=== PATIENT | female | born 1985 | race African-American/Black ===

== ENCOUNTER 2020-06-27 15:46 | Outpatient (REF) | payer OTHER, SELFPAY | END 2020-06-27 15:47 | disposition home or self-care (01) | LOC: HO.LAB 15:46 | PROVIDERS: Visit Provider Internal Medicine | DX: Z20.822 Contact with and (suspected) exposure to COVID-19 (principal) | CPT/HCPCS: C9803; U0003; U0005 ==

== ENCOUNTER 2020-10-06 08:10 | Outpatient (REF) | payer OTHER, SELFPAY ==
[2020-10-06 08:58] LABS: MANUAL DIFF FLAG SCAN; Monocytes Percent Auto 5.1 % (2-11); PLT CLUMP 1; Red Cell Distribution Width 12.8 % (11.0-16.0); SCAN SMEAR FLAG 1
[2020-10-06 09:00] LABS: Basophils Percent Auto 0.5 % (0-2); Eosinophils Absolute Auto 0.1 X10*3/uL (0.0-0.4); Eosinophils Percent Auto 1.6 % (0-4); Hematocrit 42.8 % (37-47); Imm Gran Abs Auto 0.03 X10*3/uL (0.00-0.03); Imm Gran Pct Auto 0.4 % (0.0-0.4); Lymphocytes Percent Auto 26.6 % (20-40); Mean Corpuscular HGB Conc 32.7 g/dl (31.0-35.0); Mean Corpuscular Hemoglobin 29.4 pg (27.0-33.0); Mean Corpuscular Volume 89.9 fL (80-98); Monocytes Absolute Auto 0.4 X10*3/uL (0.1-1.2); Neutrophils Percent Auto 65.8 % (45-73); Red Blood Count 4.76 X10*6/uL (4.20-5.50); White Blood Count 7.6 X10*3/uL (4.8-10.8)
[2020-10-06 09:29] LABS: Platelet Count 234 X10*3/uL (160-400); SLIDE REVIEW VERIFIED
== END 2020-10-06 08:11 | disposition home or self-care (01) ==
LOC: HO.LAB 08:10
PROVIDERS: PCP Internal Medicine; Visit Provider Internal Medicine
DX: E03.9 Hypothyroidism, unspecified (principal); J45.909 Unspecified asthma, uncomplicated
CPT/HCPCS: 36415; 80053; 82465; 84439; 84443; 85025

== ENCOUNTER 2020-10-08 14:17 | Outpatient (REF) | payer OTHER, SELFPAY ==
[2020-10-08 15:12] LABS: MANUAL DIFF FLAG NO
[2020-10-08 15:37] LABS: Basophils Absolute Auto 0.1 X10*3/uL (0.0-0.2); Basophils Percent Auto 0.5 % (0-2); Eosinophils Absolute Auto 0.1 X10*3/uL (0.0-0.4); Eosinophils Percent Auto 1.4 % (0-4); Hematocrit 42.4 % (37-47); Imm Gran Abs Auto 0.04 X10*3/uL (0.00-0.03); Imm Gran Pct Auto 0.4 % (0.0-0.4); Lymphocytes Absolute Auto 3.1 X10*3/uL (1.2-4.9); Mean Corpuscular Hemoglobin 29.4 pg (27.0-33.0); Mean Corpuscular Volume 88.9 fL (80-98); Mean Platelet Volume 10.4 fL (9.4-12.3); Monocytes Absolute Auto 0.8 X10*3/uL (0.1-1.2); Monocytes Percent Auto 7.9 % (2-11); Neutrophils Absolute Auto 6.1 X10*3/uL (2.0-8.3); Neutrophils Percent Auto 59.8 % (45-73); Platelet Count 296 X10*3/uL (160-400); Red Blood Count 4.77 X10*6/uL (4.20-5.50); Red Cell Distribution Width 12.5 % (11.0-16.0); White Blood Count 10.2 X10*3/uL (4.8-10.8)
[2020-10-08 15:45] LABS: Alanine Aminotransferase 25 U/L (0-31); Albumin Level 4.9 g/dL (3.5-5.0); Alkaline Phosphatase 90 U/L (39-117); Anion Gap 16 (12-20); Aspartate Amino Transferase 17 U/L (5-31); Bilirubin Total 0.3 mg/dL (0.0-1.0); Blood Urea Nitrogen 13 mg/dL (9-16); Calcium 9.7 mg/dL (8.4-10.2); Carbon Dioxide 25 mmol/L (22-29); Chloride 101 mmol/L (96-108); Cholesterol 199 mg/dL; Estimated Glomerular Filt Rate 58; Glucose Random 91 mg/dL (60-115); Potassium 4.6 mmol/L (3.3-5.1); Sodium 137 mmol/L (135-145); Total Protein 7.9 g/dL (6.5-8.0)
[2020-10-08 16:09] LABS: Free T4 (Free Thyroxine) 0.99 ng/dL (0.71-1.85)
== END 2020-10-08 14:18 | disposition home or self-care (01) ==
LOC: HO.LAB 14:17
PROVIDERS: PCP Internal Medicine; Visit Provider Internal Medicine
DX: E03.9 Hypothyroidism, unspecified (principal); F90.9 Attention-deficit hyperactivity disorder, unspecified type; J45.909 Unspecified asthma, uncomplicated
CPT/HCPCS: 36415; 80053; 82465; 84439; 84443; 85025

== ENCOUNTER 2021-01-06 15:00 | Outpatient (RCR) | payer OTHER, SELFPAY ==
--- NOTE | 2020-10-20 18:14 | MHC.PT.EP ---
[facility] [place] Office [place] Office [place] Office [address] Neida Casarez [address] [place] [address] [phone] F: [phone] F: [phone] F: [phone] F: [phone] Physical Therapy Plan of Care Date of Evaluation: Date of Surgery: N/A Diagnosis: sacrococcygeal disorders (R SI dysfunction) Assessment: pt presents to physical therapy with pain, decreased range of motion, decreased strength, impaired functional mobility, impaired postural awareness, and gait deviations. pt is a good candidate for skilled PT due to age, potential remediation of impairments, typical disease/condition progression and prognosis, comorbidities, and motivation. pt would benefit from tailored strengthening and stretching exercise program, functional training, gait training, postural re-training, neuromuscular re-education, modalities as needed for pain, equipment safety demonstration. Frequency and Duration: The patient will be seen 2x/wk for 4 wks Short Term Goals: pt will be I w/ HEP to promote self-management of condition. pt will improve R hip abduction and extension strength by 1 MMT grade to promote improved pelvic stability w/ ambulation. Mcc Goals: pt will report <3/10 back pain w/ >30 min of cardio exercise to promote improved cardiovascular and musculoskeletal health. pt will tolerate sitting for >1 hr to promote pain-free return to work. Treatment Plan: Modalities to reduce pain, spasms and effusion. Manual therapy to restore motion and function. Therapeutic exercise to improve strength and flexibility. Neuromuscular re-education for posture and balance. Therapeutic activities to return to functional activities of daily living. Electronically signed by: Morenita Marshall PT, DPT Please sign and return to therapist. Thank you for your referral.
--- NOTE | 2021-01-19 14:21 | MHC.PT.DC ---
[facility] [place] Office [place] Office [place] Office [address] Neida Casarez [address] [phone] F: [phone] F: [phone] F: [phone] F: [phone] Physical Therapy Discharge Report Diagnosis: sacrococcygeal disorders (R SI dysfunction) Date of Surgery: N/A Date of Evaluation: 10/20/20 Date of Discharge: 01/19/21 Treatments to Date: 13 Cancellations to Date: 5 No Shows to Date: 0 Discharge Status: Improved Function Independent with HEP Discharge Summary: The patient has had fair attendance compliance throughout her physical therapy plan of care. Initially, she was progressing well with subjective reports of less intense and less frequent pain. She had a setback which she was not able to connect to any change in routine or trauma. She struggled to manage her symptoms. The patient was educated regarding bilateral lower extremity stretching and strengthening, posture education, use of lumbar roll when sitting, and activity modification to reduce exacerbation of symptoms. When she returned she reported she was relatively pain-free and would like to review her exercises and squat mechanics for safe return to her gym routine. She is independent with her home exercise program. She is discharged from this physical therapy plan of care. Electronically signed by: Morenita Marshall PT, DPT Please sign and return to therapist. Thank you for your referral.
== END 2021-01-19 14:22 | disposition home or self-care (01) ==
LOC: HO.PT 15:00
PROVIDERS: PCP Internal Medicine; Visit Provider Internal Medicine
DX: M53.3 Sacrococcygeal disorders, not elsewhere classified (principal)
CPT/HCPCS: 97033; 97110; 97112; 97161

== ENCOUNTER 2021-09-07 16:38 | Emergency (ER) | payer BC, SELFPAY ==
--- NOTE | 2021-09-07 | ECG_ITS ---
Test Reason : CHEST PAIN Blood Pressure : / mmHG Vent. Rate : 100 BPM Atrial Rate : 100 BPM P-R Int : 154 ms QRS Dur : 070 ms QT Int : 324 ms P-R-T Axes : 039 013 005 degrees QTc Int : 417 ms Normal sinus rhythm Nonspecific T wave abnormality Abnormal ECG When compared with ECG of 20-JUL-2010 14:56, Vent. rate has increased BY [address] no longer elevated in Anterior leads Referred By: Generic ED Physician Electronically Signed By:Emanuel Knott
--- NOTE | ~2021-09-07 | XR_ITS ---
EXAMINATION: XR CHEST CLINICAL INFORMATION: Chest pain COMPARISON: None TECHNIQUE: Frontal view of the chest was obtained. FINDINGS: No significant abnormality is noted involving the heart, lungs, mediastinum, bony thorax or soft tissues. XR/XR chest 1V IMPRESSION: No acute pulmonary disease.
[2021-09-07 17:12] VITALS: BP 142/73; PULSE 100; RESP 18; TEMP 36.8; O2SAT 100; BMI 28.4
[2021-09-07 17:49] LABS: MANUAL DIFF FLAG NO
[2021-09-07 17:53] LABS: Eosinophils Absolute Auto 0.1 X10*3/uL (0.0-0.4); Eosinophils Percent Auto 0.8 % (0-4); Hematocrit 36.8 % (37.0-47.0); Hemoglobin 12.5 g/dl (12.0-16.0); Imm Gran Abs Auto 0.04 X10*3/uL (0.00-0.03); Imm Gran Pct Auto 0.4 % (0.0-0.4); Lymphocytes Absolute Auto 2.5 X10*3/uL (1.2-4.9); Lymphocytes Percent Auto 25.1 % (20-40); Mean Corpuscular Hemoglobin 29.7 pg (27.0-33.0); Mean Corpuscular Volume 87.4 fL (80.0-98.0); Mean Platelet Volume 8.8 fL (9.4-12.3); Monocytes Absolute Auto 0.4 X10*3/uL (0.1-1.2); Monocytes Percent Auto 4.5 % (2-11); Neutrophils Absolute Auto 6.7 x10*3/uL (2.0-8.3); Neutrophils Percent Auto 69.2 % (45-73); Platelet Count 316 X10*3/uL (160-400); Red Blood Count 4.21 X10*6/uL (4.20-5.50); Red Cell Distribution Width 11.8 % (11.0-16.0); White Blood Count 9.8 X10*3/uL (4.8-10.8)
[2021-09-07 18:01] LABS: COVID-19 Test Negative (Negative); IDNOW Serial# 55D5AD1C
[2021-09-07 18:06] LABS: Anion Gap 12 (12-20); Blood Urea Nitrogen 12 mg/dL (9-16); Calcium 8.9 mg/dL (8.4-10.2); Carbon Dioxide 26 mmol/L (22-29); Chloride 104 mmol/L (96-108); Creatinine Clr Calc Pharmacy 78.9; Estimated Glomerular Filt Rate 59; Glucose Random 97 mg/dL (60-115); Potassium 3.8 mmol/L (3.3-5.1); Sodium 138 mmol/L (135-145)
[2021-09-07 18:14] LABS: Troponin-I High Sensitivity < 3.5 ng/L (<3.5-17.0)
[2021-09-07 20:00] VITALS: BP 137/75; PULSE 85; RESP 16; TEMP 36.7; O2SAT 100
--- NOTE | 2021-09-07 20:07 | ED_ITS ---
HPI - URI/Sore Throat General Chief Complaint: Upper Respiratory Symptoms Stated Complaint: SOB/chest tightness/possible COVID Time Seen by Provider: 09/07/21 20:07 Source: patient Mode of arrival: ambulatory Limitations: no limitations History of Present Illness HPI Narrative: Patients have anxiety bipolar disorder ADHD and asthma complaining of dry cough for last 2 weeks slight shortness of breath today got worse when she could not find her remote in the room use her inhaler when she came here she was saturat ing 100% and she got better no fever no chills Related Data Home Medications Medication Instructions Recorded Confirmed albuterol sulfate 90 mcg/actuation 2 puff PO BID PRN 12/11/20 05/11/21 aerosol inhaler betamethasone valerate 0.1 % topical 12/11/20 05/11/21 topical ointment dextroamphetamine-amphetamine 10 2.5 tab PO DAILY 12/11/20 05/11/21 mg tablet epinephrine 0.3 mg/0.3 mL 0.3 ml IM ONCE PRN 12/11/20 05/11/21 injection, auto-injector gabapentin 600 mg tablet 600 mg PO BEDTIME 12/11/20 05/11/21 levothyroxine 88 mcg tablet 88 mcg PO DAILY 12/11/20 05/11/21 (Euthyrox) bupropion HCl 150 mg 24 hr tablet, 300 mg PO QAM 05/11/21 05/11/21 extended release bupropion HCl 75 mg tablet 75 mg PO QAM 05/11/21 05/11/21 drospirenone 3 mg-ethinyl 1 tab PO DAILY 05/11/21 05/11/21 estradiol 0.02 mg tablet fluticasone 100 mcg-salmeterol 50 1 inh inhalation BID 05/11/21 05/11/21 mcg/dose blistr powdr for inhalation (Advair Diskus) hydroxyzine HCl 10 mg tablet 10 mg PO BID 05/11/21 05/11/21 lamotrigine 100 mg tablet mg PO 05/11/21 05/11/21 lamotrigine 250 mg tablet,extended 250 mg PO DAILY 05/11/21 05/11/21 release 24 hr Allergies Allergy/AdvReac Type Severity Reaction Status Date / Time No Known Allergies Allergy Verified 09/07/21 17:12 Review of Systems Review of Systems: Yes all other systems are reviewed and are negative [facility] Past Medical History Surgical History History of wisdom tooth extraction Family History Family History Mother Depressed Bipolar 1 disorder Anxiety ADHD Mental health disorder Father No problems noted. Other Substance use disorder Social History Social History Housing: Apartment Alcohol intake: current Alcohol intake frequency: holidays/special occasions only Patient Tobacco Use Status: Never used Tobacco e-Cigarette/Vaping Use: Never Used Second Hand Smoke Exposure: No service: No Current occupational status: employed Current occupation: [employer] Physical Exam Vital Signs: Vital Signs: Last Vital Signs Temp 98.0 F 09/07/21 20:00 Pulse 85 09/07/21 20:00 Resp 16 09/07/21 20:00 BP 137/75 09/07/21 20:00 Pulse Ox 100 09/07/21 20:00 O2 Del Method 09/07/21 20:00 BMI result Body Mass Index 28.4 Appearance: Alert. Oriented X3. No acute distress. Anxious Eyes: No pallor or icterus ENT: Pharynx normal. Oral Mucosa moist Neck: Normal inspection. Neck supple. CVS: Normal heart rate and rhythm. Pulses normal. Respiratory: No respiratory distress. Equal air entry bilateral, no wheezing/rales/rhonchi Abdomen: Soft and nontender. Bowel sounds are present, no mass palpable, Skin: Skin warm and dry. Normal skin color. Normal skin turgor. Extremities: No lower extremity edema. No calf tenderness Neuro: Oriented X 3. No motor deficit. MDM - URI/Sore Throat MDM Narrative Medical decision making narrative: Patient has stable labs COVID negative x-ray negative lungs are clear to auscultation saturating 100% room air symptoms seems to be mild anxiety , patient has medications at home will discharge patient home Lab Data Attestation: I reviewed the patient's lab results. Result diagrams: 09/07/21 17:44 09/07/21 17:44 Labs: Lab Results 09/07/21 09/07/21 09/07/21 Range/Units 17:30 17:44 17:44 WBC 9.8 (4.8-10.8) X10*3/uL RBC 4.21 (4.20-5.50) X10*6/uL Hgb 12.5 (12.0-16.0) g/dl Hct 36.8 L (37.0-47.0) % MCV 87.4 (80.0-98.0) fL MCH 29.7 (27.0-33.0) pg MCHC 34.0 (31.0-35.0) g/dl RDW 11.8 (11.0-16.0) % Plt Count 316 (160-400) X10*3/uL MPV 8.8 L (9.4-12.3) fL Immature Gran % (Auto) 0.4 (0.0-0.4) % Neut % (Auto) 69.2 (45-73) % Lymph % (Auto) 25.1 (20-40) % [place] % (Auto) 4.5 (2-11) % Eos % (Auto) 0.8 (0-4) % Baso % (Auto) 0.0 (0-2) % Lymph # (Auto) 2.5 (1.2-4.9) X10*3/uL [place] # (Auto) 0.4 (0.1-1.2) X10*3/uL Eos # (Auto) 0.1 (0.0-0.4) X10*3/uL Baso # (Auto) 0.0 (0.0-0.2) X10*3/uL Abs Immat Gran (auto) 0.04 H (0.00-0.03) X10*3/uL Absolute Neuts (auto) 6.7 (2.0-8.3) x10*3/uL Absolute Nucleated RBC 0.000 (0.0-0.012) X10*3/uL Nucleated RBC % (auto) 0.0 (0.0-0.2) /100WBC Sodium 138 (135-145) mmol/L Potassium 3.8 (3.3-5.1) mmol/L Chloride 104 (96-108) mmol/L Carbon Dioxide 26 (22-29) mmol/L Anion Gap 12 (12-20) BUN 12 (9-16) mg/dL Creatinine 1.06 (0.5-1.4) mg/dL Estim Creat Clear Calc 78.9 Estimated GFR 59 Random Glucose 97 (60-115) mg/dL Calcium 8.9 D (8.4-10.2) mg/dL Troponin I High Sens (<3.5-17.0) ng/L COVID-19 ([facility]) Negative (Negative) COVID-19 Clin Com See Note 09/07/21 Range/Units 17:44 WBC (4.8-10.8) X10*3/uL RBC (4.20-5.50) X10*6/uL Hgb (12.0-16.0) g/dl Hct (37.0-47.0) % MCV (80.0-98.0) fL MCH (27.0-33.0) pg MCHC (31.0-35.0) g/dl RDW (11.0-16.0) % Plt Count (160-400) X10*3/uL MPV (9.4-12.3) fL Immature Gran % (Auto) (0.0-0.4) % Neut % (Auto) (45-73) % Lymph % (Auto) (20-40) % [place] % (Auto) (2-11) % Eos % (Auto) (0-4) % Baso % (Auto) (0-2) % Lymph # (Auto) (1.2-4.9) X10*3/uL [place] # (Auto) (0.1-1.2) X10*3/uL Eos # (Auto) (0.0-0.4) X10*3/uL Baso # (Auto) (0.0-0.2) X10*3/uL Abs Immat Gran (auto) (0.00-0.03) X10*3/uL Absolute Neuts (auto) (2.0-8.3) x10*3/uL Absolute Nucleated RBC (0.0-0.012) X10*3/uL Nucleated RBC % (auto) (0.0-0.2) /100WBC Sodium (135-145) mmol/L Potassium (3.3-5.1) mmol/L Chloride (96-108) mmol/L Carbon Dioxide (22-29) mmol/L Anion Gap (12-20) BUN (9-16) mg/dL Creatinine (0.5-1.4) mg/dL Estim Creat Clear Calc Estimated GFR Random Glucose (60-115) mg/dL Calcium (8.4-10.2) mg/dL Troponin I High Sens < 3.5 (<3.5-17.0) ng/L COVID-19 ([facility]) (Negative) COVID-19 Clin Com Discharge Plan Discharge Clinical Impression: Asthma Patient Disposition: Home, Self-Care Instructions: Asthma (ED) Additional Instructions: Continue take your inhalers and other medication as prescribed by a PCP Report to PCP/ED if not better Prescriptions: No Action levothyroxine [Euthyrox] 88 mcg tablet 88 mcg PO DAILY dextroamphetamine-amphetamine 10 mg tablet 2.5 tab PO DAILY gabapentin 600 mg tablet 600 mg PO BEDTIME albuterol sulfate 90 mcg/actuation HFA aerosol inhaler 2 puff PO BID PRN betamethasone valerate 0.1 % ointment topical epinephrine 0.3 mg/0.3 mL auto-injector 0.3 ml IM ONCE PRN bupropion HCl 150 mg tablet extended release 24 hr 300 mg PO QAM fluticasone propion-salmeterol [Advair Diskus] 100-50 mcg/dose blister with device 1 inh inhalation BID bupropion HCl 75 mg tablet 75 mg PO QAM lamotrigine 250 mg tablet extended release 24hr 250 mg PO DAILY lamotrigine 100 mg tablet PO hydroxyzine HCl 10 mg tablet 10 mg PO BID drospirenone-ethinyl estradiol 3-0.02 mg tablet 1 tab PO DAILY
== END 2021-09-07 20:42 | disposition home or self-care (01) ==
PROVIDERS: Emergency Provider Internal Medicine; PCP Physician Assistant
DX: J45.909 Unspecified asthma, uncomplicated (principal); Z20.822 Contact with and (suspected) exposure to COVID-19; R06.02 Shortness of breath
CPT/HCPCS: 36415; 71045; 80048; 84484; 85025; 87635; 93005; 99283; 99285

== ENCOUNTER 2023-05-19 10:09 | Outpatient (AMB) | payer BC, SELFPAY ==
--- NOTE | 2023-05-19 10:25 | A.OFFPC_ITS ---
Vital Signs 05/19/23 10:28 Height 5 ft 6 in Weight 173 lb BMI 27.9 BP 116/82 Blood Pressure Location Lt brachial Position Sitting Pulse 100 Pulse Source Pulse Oximeter Pulse Oximetry (%) 99 Oxygen Delivery Method Room Air Intake Visit Reasons: Annual Exam Intake Note: Patient is here today for a physical. Solo Musician Required: No Accompanied by: Self / Same As Patient Is last menstrual period known: Yes Last menstrual period: 04/29/23 Allergies No Known Allergies Allergy (Verified 05/19/23 10:41) Medication List - Last Reconciled 05/19/23 by Geovany Bains PA-C albuterol sulfate 90 mcg/actuation 2 puffs PO BID PRN 30 days betamethasone valerate 0.1% topical bupropion HCl 75 mg PO QAM bupropion HCl 300 mg PO QAM dextroamphetamine-amphetamine 20 mg ER (Adderall XR) 1 cap PO QAM drospirenone-ethinyl estradiol 3-0.02 mg 1 tab PO DAILY epinephrine 0.3 mL IM ONCE PRN fluticasone propion-salmeterol 100-50 mcg/dose (Advair Diskus) 1 inh inhalation BID 30 days gabapentin 600 mg PO DAILY gabapentin 300 mg PO BEDTIME hydroxyzine HCl 10 mg PO BID lamotrigine ER 250 mg PO DAILY levothyroxine (Euthyrox) 88 mcg PO DAILY 90 days Tobacco use date assessed: 05/19/23 Dental Screening Dental Screen Date: 05/19/23 Did you have a dental visit in the last 12 months?: Yes Did you have a dental problem in the last 6 months where you did not have access to dental care?: No Was dental information given to patient?: Patient has dentist HPI Annual Exam HPI Details Patient is a 38-year-old female here today for a PE.? Patient has a past medical history significant for ADHD, hypothyroidism, bipolar disorder, PTSD. Concern--> has been suffering with worsening postnasal drip to the point that even caused her to vomit. She is using antihistamine and nasal spray though has seemed not to help. Will supply her with an alternative nasal spray. ADHD/PTSD/ Bipolar:? She is followed by psychiatrist and mental therapist to manage her mental health medications.? She feels fairly stable on her current doses medications.? Has made many med adjustments over the last 6-8 months. She reports her mental health has been much improved since changing her job. She has been working with her psychiatrist on reducing her dose of lamotrigine. .. Hypothyroid:? Continues on levothyroxine 88 mcg.? Advised to get TSH free checked to ensure normal.? .. Asthma: has been controlled with advair. He reports she really feels he might need the Advair.. She has had no nighttime awakenings with asthma symptoms or asthma exacerbations. She seldomly uses her rescue inhaler. Vaccines: Up-to-date with COVID vaccine, up-to-date with tetanus vaccine, declines flu vaccine, UTD with PCV. 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 Other Substance use disorder Social History (Updated 05/19/23 @ 10:44 by Geovany Bains PA-C) Housing: Apartment Alcohol intake: current Alcohol intake frequency: holidays/special occasions only Patient Tobacco Use Status: Never used Tobacco e-Cigarette/Vaping Use: Never Used Second Hand Smoke Exposure: No Substance Use Type: Marijuana service: No Current occupational status: employed Current occupation: [employer] Cognitive needs: No Hearing needs: No Vision needs: No Female Reproductive History Menstrual Date of last menstrual period: 04/29/23 Questionnaire PHQ-9 Over the last 2 weeks, how often have you been bothered by any of the following problems? 1. Little interest or pleasure in doing things: not at all 2. Feeling down, depressed, or hopeless: not at all 3. Trouble falling or staying asleep, or sleeping too much: not at all 4. Feeling tired or having little energy: not at all 5. Poor appetite or overeating: not at all 6. Feeling bad about yourself - or that you are a failure or have let yourself or your family down: not at all 7. Trouble concentrating on things, such as reading the newspaper or watching television: not at all 8. Moving or speaking so slowly that other people could have noticed. Or the opposite - being so fidgety or restless that you have been moving around a lot more than usual: not at all 9. Thoughts that you would be better off or of hurting yourself in some way: not at all Total score: 0 Depression Screening Interpretation: Negative Depression Screening Done: Yes 63141 - PHQ-9 Billing: Yes Source: Developed by Drs. Vito Donnelly, Dianne Naidu, Dandre Cuevas and colleagues, with an educational orlin from [employer]. Thrive Questionnaire Date Thrive assessed: 05/19/23 I am a: Patient What is your living situation today?: I have a steady place to live Within the past 12 months, did the food you bought not last and you didn't have the money to get more?: Never true Within the past 12 months, did you worry whether your food would run out before you got money to buy more?: Never true Do you have trouble paying for medicines?: No Do you have trouble getting transportation to medical appointments?: No Do you have trouble paying your heating and electricity bill?: No Do you have trouble taking care of your child, family member or friend?: No Do you have trouble with day-to-day activities such as bathing, preparing meals, shopping, managing finances, etc.?: No Are you currently unemployed and looking for a job?: No Are you interested in more education?: No Please select the resources that you would like help with: None Currently or been in a relationship where the following occur: no concerns reported THRIVE Score: 0 AUDIT C Alcohol Use Questionnaire (AUDIT-C) 1. How often do you have a drink containing alcohol?: Monthly or less 2. How many drinks containing alcohol do you have on a typical day when you are drinking?: 1 or 2 3. How often do you have six or more drinks on one occasion?: Never Total Score: 1 MALCOM-7 AMB Questionnaire MALCOM-7 Date MALCOM - 7 assessed: 05/19/23 Feeling nervous, anxious, or on edge: 0 = Not at all Not being able to stop or control worryin = Not at all Worrying too much about different things: 0 = Not at all Trouble relaxin = Not at all Being so restless that it is hard to sit still: 0 = Not at all Becoming easily annoyed or irritable: 0 = Not at all Feeling afraid as if something awful might happen: 0 = Not at all Total MALCOM-7 score (0-4 normal; 5-9 mild; 10-14 moderate; 15-21 severe): 0 Source: Developed by Drs. Vito Donnelly, Dianne Naidu, Dandre Cuevas and colleagues, with an educational orlin from [employer]. MALCOM-7 Assessment Billing MALCOM-7 Assessment Tool: MALCOM-7 Assessment 59198 ACT Questionnaire In the past 4 weeks, how much of the time did your asthma keep you from getting as much done at work, school or at home?: None of the time During the past 4 weeks, how often have you had shortness of breath?: Not at all During the past 4 weeks, how often did your asthma symptoms wake you up at night or earlier than usual in the morning?: Not at all During the past 4 weeks, how often have you had to use your rescue inhaler or nebulizer medication?: Not at all How would you rate your asthma control during the past 4 weeks?: Well controlled ACT Interpretation: Negative Score: 24 Review of Systems Const Denies body aches, Denies chills, Denies excessive sweating, Denies fatigue, Denies fever(s) and Denies headache(s) Eyes Denies blurry vision ENT Denies dysphagia, Denies vertigo, Denies dizziness, Denies headache(s), Denies hearing loss and Denies tinnitus Card Denies chest pain, Denies chest pain with activity, Denies syncope, Denies irregular heart rhythm and Denies dyspnea Resp Denies chest congestion, Denies cough, Denies hemoptysis, Denies dyspnea and Denies wheezing GI Denies abdominal pain, Denies melena, Denies hematochezia, Denies coffee ground emesis, Denies dysphagia, Denies diarrhea, Denies nausea and Denies vomiting Denies urinary frequency, Denies dysuria, Denies urinary hesitancy and Denies urinary urgency Musc Denies arthralgias, Denies limited range of motion, Denies muscle cramps and Denies muscle weakness Skin/Breast Denies rash and Denies skin ulcer Neuro Denies Abnormal speech present, Denies confusion, Denies vertigo, Denies dizziness, Denies syncope, Denies headache(s), Denies memory loss and Denies seizure-like activity Psych Denies anxiety, Denies confusion, Denies depression, Denies memory loss, Denies panic attacks and Denies paranoia Endo Denies excessive sweating, Denies fatigue, Denies flushing, Denies polydipsia and Denies polyuria Aller/Immun Denies wheezing Physical exam (Primary Care) Vital Signs: Last Vital Signs Pulse 100 05/19/23 10:28 BP 116/82 05/19/23 10:28 Pulse Ox 99 05/19/23 10:28 Oxygen Delivery Method Room Air 05/19/23 10:28 BMI result Body Mass Index 27.9 Tobacco/Smoking Status: Tobacco use Status Tobacco use date assessed 05/19/23 05/19/23 10:30 Patient Tobacco Use Status Never used Tobacco 05/19/23 10:44 e-Cigarette/Vaping Use Never Used 05/19/23 10:44 PHQ-9: PHQ-9 Score PHQ-9: Total score 0 05/19/23 10:46 Depression Screening Interpretation: Negative Thrive Assessment: Date of Thrive Assessment Date Thrive assessed 05/19/23 05/19/23 10:40 Currently or been in a relationship where the following occur: no concerns reported Const General: cooperative, comfortable, no acute distress, alert and awake; No confusion Orientation/consciousness: oriented to person, oriented to place, patient oriented x3 and No confusion HENMT Head: Yes normocephalic Ears: external ears normal and TM's normal bilaterally Face and sinus: No sinus tenderness Mouth: Normal oral and palatal mucosa present and tongue normal Teeth and gingiva: dentition normal and gingiva normal Throat: Yes posterior oropharynx normal, Yes tonsils normal and Yes uvula midline Eyes Conjunctivae: conjunctivae normal Sclerae: sclerae normal Pupils: Equal, round and reactive pupils present EOM: EOMs intact bilaterally Direct Ophthalmoscopy: No no photophobia Neck Neck: Yes no lymphadenopathy, No tender and Yes no JVD Thyroid: Thyroid normal Carotids: no bruits Chest Chest palpation & inspection: no tenderness Resp Effort & Inspection: normal respiratory effort, no audible wheezes, not labored and no stridor Auscultation: no crackles, no rales, no rhonchi and no wheezes Cardio Jugular venous distension: no JVD Rate: regular rate, not bradycardic and not tachycardic Rhythm: regular rhythm Bruits: no carotid bruits Peripheral pulses: Peripheral pulses 2+ throughout GI Inspection: Yes normal to inspection, No abdominal wall ecchymosis and No visible herniation Palpation (GI): Soft to palpation, nontender, no guarding, not rigid and No hepatosplenomegaly present Auscultation: normoactive bowel sounds General: Yes no CVA tenderness Back/Spine/Pelvis Back: no CVA tenderness and No back tenderness Cervical Spine: cervical ROM normal Thoracic/Lumbar Spine: thoracic and lumbar spine normal to inspection, straight leg raise negative bilaterally, No thoraco-lumbar ROM limited and No lumbar spinal tenderness Skin Lesions: no lesions Rashes: no rashes Wounds: no wounds Neuro General: oriented to person, oriented to place, patient oriented x3, CN's II-XI intact bilaterally and No confusion Cranial nerves: Yes Equal, round and reactive pupils present and Yes Normal accommodation reflex present Cognition (Neuro): normal cognition Speech: No Abnormal speech present Gait exam (Neuro): Normal gait present Motor exam (neuro): 5/5 motor strength present throughout Extrem Right upper extremity: full ROM; no cyanosis Left upper extremity: full ROM; no cyanosis Right lower extremity: no edema Left lower extremity: no edema Psych Appearance: grossly normal Mental Status: mental status grossly normal Affect: normal affect Attitude: cooperative Thought process: Normal thought process present Assessment and Plan Assessment & Plan (1) Annual physical exam: Code(s): Z00.00 - Encounter for general adult medical examination without abnormal findings (2) ADHD: Code(s): F90.9 - Attention-deficit hyperactivity disorder, unspecified type Qualifiers: Attention deficit-hyperactivity disorder type: unspecified Qualified Code(s): F90.9 - Attention-deficit hyperactivity disorder, unspecified type Plan: Patient followed by Psychiatry who manages her mental medications. She feels she is fairly stable on current medication for ADHD. (3) Hypothyroid: Code(s): E03.9 - Hypothyroidism, unspecified Qualifiers: Hypothyroidism type: unspecified Qualified Code(s): E03.9 - Hypothyroidism, unspecified Plan: Patient's most recent TSH has been stable though has yet to get more recent labs. Will continue levothyroxine 88 mcg and consider. Otherwise patient has been clinically euthyroid. (4) Asthma: Code(s): J45.909 - Unspecified asthma, uncomplicated Qualifiers: Asthma complication type: uncomplicated Asthma persistence: persistent Asthma severity: moderate Qualified Code(s): J45.40 - Moderate persistent asthma, uncomplicated Plan: Patient reports her asthma symptoms have been fairly well controlled. Has not had any recent exacerbations and denies any nighttime awakenings with asthma symptoms. (5) MALCOM (generalized anxiety disorder): Code(s): F41.1 - Generalized anxiety disorder Plan: Patient's MALCOM-7 score 0. Does have a history of anxiety. Her anxiety has been much better since changing her job.. She continues to speak with a mental health therapist and is managed with medications. (6) MDD (major depressive disorder), recurrent episode, moderate: Code(s): F33.1 - Major depressive disorder, recurrent, moderate Plan: Patient's PHQ-9 score 0. Her depression has been much better since changing her job. Again patient is followed by psychiatrist in his manage with medications. She otherwise denies any SI or HI (7) Allergic rhinitis: Code(s): J30.9 - Allergic rhinitis, unspecified Qualifiers: Allergic rhinitis seasonality: non-seasonal Allergic rhinitis trigger: unspecified Qualified Code(s): J30.89 - Other allergic rhinitis Plan: Reports having postnasal drip that has worsened over last 4 weeks. Has been using allergy medication and Flonase nasal spray though has not been effective. Will supply her with ipratropium nasal spray (8) Bipolar disorder: Code(s): F31.9 - Bipolar disorder, unspecified Qualifiers: Active/Remission status: currently active Current bipolar episode type: depressed Current episode severity: moderate Qualified Code(s): F31.32 - Bipolar disorder, current episode depressed, moderate Plan: Continues to follow psychiatrist and mental health therapist. She has been reducing her dose of lamotrigine which he feels very good about. Orders: Orders TSH reflex Free T4 Today E03.9 - Hypothyroidism, unspecified Comprehensive Met. Panel Today Z13.1 - Encounter for screening for diabetes mellitus Complete Blood Count no Diff Today J45.40 - Moderate persistent asthma, uncomplicated Medications: New ipratropium bromide administer into each nostril 2 sprays intranasal BID 30 days 30 mL 1RF J30.89 - Other allergic rhinitis Coding Level of Care Code Est Pt Prev Care 18-39y(28233) Diagnoses Annual physical exam Z00.00 Attention deficit hyperactivity disorder (ADHD), unspecified ADHD type F90.9 Attention deficit-hyperactivity disorder type: unspecified Hypothyroidism, unspecified type E03.9 Hypothyroidism type: unspecified Moderate persistent asthma without complication J45.40 Asthma complication type: uncomplicated Asthma persistence: persistent Asthma severity: moderate MALCOM (generalized anxiety disorder) F41.1 MDD (major depressive disorder), recurrent episode, moderate F33.1 Non-seasonal allergic rhinitis, unspecified trigger J30.89 Allergic rhinitis seasonality: non-seasonal Allergic rhinitis trigger: unspecified Bipolar affective disorder, currently depressed, moderate F31.32 Active/Remission status: currently active Current bipolar episode type: depressed Current episode severity: moderate Additional Codes MALCOM-7 Assessment Billing - MALCOM-7 Assessment Tool: MALCOM-7 Assessment [id number] ([id number])
[2023-05-19 10:28] VITALS: BP 116/82; PULSE 100; O2SAT 99; BMI 27.9
== END 2023-05-19 10:59 | disposition home or self-care (01) ==
PROVIDERS: Visit Provider Physician Assistant
DX: Z00.00 Encounter for general adult medical examination without abnormal findings (principal); F31.32 Bipolar disorder, current episode depressed, moderate; F90.9 Attention-deficit hyperactivity disorder, unspecified type; E03.9 Hypothyroidism, unspecified; J45.40 Moderate persistent asthma, uncomplicated; F41.1 Generalized anxiety disorder; J30.89 Other allergic rhinitis
CPT/HCPCS: 99395

== ENCOUNTER 2023-05-19 11:03 | Outpatient (REF) | payer BC, SELFPAY ==
[2023-05-19 11:57] LABS: Hematocrit 38.5 % (37.0-47.0); Mean Corpuscular HGB Conc 33.8 g/dl (31.0-35.0); Mean Corpuscular Hemoglobin 28.9 pg (27.0-33.0); Mean Corpuscular Volume 85.6 fL (80.0-98.0); Mean Platelet Volume 9.8 fL (9.4-12.3); Platelet Count 293 X10*3/uL (160-400); White Blood Count 7.1 X10*3/uL (4.8-10.8)
[2023-05-19 12:31] LABS: Alanine Aminotransferase 14 U/L (0-31); Albumin Level 4.2 g/dL (3.5-5.0); Alkaline Phosphatase 53 U/L (39-117); Anion Gap 13 (12-20); Aspartate Amino Transferase 17 U/L (5-31); Bilirubin Total 0.3 mg/dL (0.0-1.0); Blood Urea Nitrogen 12 mg/dL (9-16); Calcium 9.4 mg/dL (8.4-10.2); Carbon Dioxide 21 mmol/L (22-29); Chloride 109 mmol/L (96-108); Estimated Glomerular Filt Rate 60; Glucose Random 85 mg/dL (60-115); Potassium 4.1 mmol/L (3.3-5.1); Sodium 139 mmol/L (135-145); Total Protein 7.2 g/dL (6.5-8.0)
[2023-05-19 12:45] LABS: TSH reflex Free T4 1.09 uIU/mL (0.32-4.0)
== END 2023-05-19 11:04 | disposition home or self-care (01) ==
LOC: HO.LAB 11:03
PROVIDERS: PCP Physician Assistant; Visit Provider Physician Assistant
DX: Z13.1 Encounter for screening for diabetes mellitus (principal); J45.40 Moderate persistent asthma, uncomplicated; E03.9 Hypothyroidism, unspecified
CPT/HCPCS: 36415; 80053; 84443; 85027

== ENCOUNTER 2024-05-21 11:26 | Outpatient (AMB) | payer BC, SELFPAY ==
[2024-05-21 11:34] VITALS: BP 120/74; PULSE 82; O2SAT 99; BMI 27.1
--- NOTE | 2024-05-21 11:34 | MHC.PC.OV ---
Vital Signs 05/21/24 11:34 Height 5 ft 6 in Weight 168 lb BMI 27.1 BP 120/74 Blood Pressure Location Lt brachial Position Sitting Pulse 82 Pulse Source Pulse Oximeter Pulse Oximetry (%) 99 Oxygen Delivery Method Room Air Intake Visit Reasons: Annual exam Intake Note: Patient is here today for a physical. 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 Accompanied by: Self / Same As Patient Allergies No Known Allergies Allergy (Verified 05/21/24 11:45) Medication List - Last Reconciled 05/21/24 by Geovany Bains PA-C albuterol sulfate 90 mcg/actuation 2 puffs PO BID PRN 30 days bupropion HCl 75 mg PO QAM bupropion HCl XL 300 mg PO QAM bupropion HCl XL mg PO DAILY dextroamphetamine-amphetamine 20 mg ER (Adderall XR) 1 cap PO QAM drospirenone-ethinyl estradiol 3-0.02 mg 1 tab PO DAILY epinephrine 0.3 mL IM ONCE PRN fluticasone propion-salmeterol 100-50 mcg/dose (Advair Diskus) 1 inh inhalation BID 30 days gabapentin 600 mg PO DAILY gabapentin 300 mg PO BEDTIME hydroxyzine HCl 10 mg PO BID ipratropium bromide 2 sprays intranasal BID 30 days lamotrigine mg PO DAILY levothyroxine (Euthyrox) 88 mcg PO DAILY 90 days norethindrone (contraceptive) mg PO DAILY triamcinolone acetonide 0.5% 1 appl topical DAILY 30 days Tobacco use date assessed: 05/21/24 Dental Screening Dental Screen Date: 05/21/24 Did you have a dental visit in the last 12 months?: Yes Did you have a dental problem in the last 6 months where you did not have access to dental care?: No Was dental information given to patient?: Patient has dentist HPI Annual exam HPI Details Patient is a 39-year-old female here today for a PE.? Patient has a past medical history significant for ADHD, hypothyroidism, bipolar disorder, PTSD. Concern--> she reports she has chronic intermittent right foot pain and swelling worse in summer months. She reports while her right foot is swollen mostly over the dorsal region she experienced pain. She can not recall particular trauma to her right foot ADHD/PTSD/ Bipolar:? She is followed by psychiatrist and mental therapist to manage her mental health medications.? She feels fairly stable on her current doses medications.? Has made many med adjustments over the last 6-8 months. She reports her mental health has been much improved since changing her job. She has been working with her psychiatrist on reducing her dose of lamotrigine. .. Hypothyroid:? Continues on levothyroxine 88 mcg.? Advised to get TSH free checked to ensure normal.? .. Asthma: has been controlled with advair and p.r.n. use of her albuterol inhaler She has had no nighttime awakenings with asthma symptoms or asthma exacerbations. Vaccines: Up-to-date with COVID vaccine, up-to-date with tetanus vaccine, declines flu vaccine, UTD with PCV. 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 Other Substance use disorder Social History (Updated 05/21/24 @ 11:48 by Geovany Bains PA-C) Housing: Apartment Alcohol intake: current Alcohol intake frequency: a few times a month Alcohol type: beer Patient Tobacco Use Status: Never used Tobacco e-Cigarette/Vaping Use: Never Used Second Hand Smoke Exposure: No Substance Use Type: Marijuana service: No Current occupational status: employed Current occupation: [employer] Cognitive needs: No Hearing needs: No Vision needs: No Questionnaire PHQ-9 Over the last 2 weeks, how often have you been bothered by any of the following problems? 1. Little interest or pleasure in doing things: more than half the days 2. Feeling down, depressed, or hopeless: several days 3. Trouble falling or staying asleep, or sleeping too much: nearly every day 4. Feeling tired or having little energy: nearly every day 5. Poor appetite or overeating: not at all 6. Feeling bad about yourself - or that you are a failure or have let yourself or your family down: several days 7. Trouble concentrating on things, such as reading the newspaper or watching television: nearly every day 8. Moving or speaking so slowly that other people could have noticed. Or the opposite - being so fidgety or restless that you have been moving around a lot more than usual: not at all 9. Thoughts that you would be better off or of hurting yourself in some way: several days Total score: 14 Depression Screening Interpretation: Positive Depression Screening Follow-up: Existing condition and In treatment Depression Screening Done: Yes 48592 - PHQ-9 Billing: Yes Source: Developed by Drs. Vito Donnelly, Dianne Naidu, Dandre Cuevas and colleagues, with an educational orlin from [employer]. Thrive Questionnaire Date Thrive assessed: 05/21/24 I am a: Patient What is your living situation today?: I choose not to answer this question Within the past 12 months, did the food you bought not last and you didn't have the money to get more?: I choose not to answer this question Within the past 12 months, did you worry whether your food would run out before you got money to buy more?: I choose not to answer this question Do you have trouble paying for medicines?: No Do you have trouble getting transportation to medical appointments?: No Do you have trouble paying your heating and electricity bill?: No Do you have trouble taking care of your child, family member or friend?: No Do you have trouble with day-to-day activities such as bathing, preparing meals, shopping, managing finances, etc.?: I choose not to answer this question Are you currently unemployed and looking for a job?: Yes Are you interested in more education?: No Please select the resources that you would like help with: None Currently or been in a relationship where the following occur: I choose not to answer THRIVE Score: 0 AUDIT C Alcohol Use Questionnaire (AUDIT-C) 1. How often do you have a drink containing alcohol?: Monthly or less 2. How many drinks containing alcohol do you have on a typical day when you are drinking?: 1 or 2 3. How often do you have six or more drinks on one occasion?: Less than monthly Total Score: 2 MALCOM-7 AMB Questionnaire MALCOM-7 Date MALCOM - 7 assessed: 05/21/24 Feeling nervous, anxious, or on edge: 2 = More than half the days Not being able to stop or control worryin = Nearly every day Worrying too much about different things: 3 = Nearly every day Trouble relaxin = More than half the days Being so restless that it is hard to sit still: 0 = Not at all Becoming easily annoyed or irritable: 2 = More than half the days Feeling afraid as if something awful might happen: 2 = More than half the days Total MALCOM-7 score (0-4 normal; 5-9 mild; 10-14 moderate; 15-21 severe): 14 Source: Developed by Drs. Vito Donnelly, Dianne Naidu, Dandre Cuevas and colleagues, with an educational orlin from [employer]. MALCOM-7 Assessment Billing MALCOM-7 Assessment Tool: MALCOM-7 Assessment 56474 Review of Systems Const Denies body aches, Denies chills, Denies excessive sweating, Denies fatigue, Denies fever(s) and Denies headache(s) Eyes Denies blurry vision ENT Denies dysphagia, Denies vertigo, Denies dizziness, Denies headache(s), Denies hearing loss and Denies tinnitus Card Denies chest pain, Denies chest pain with activity, Denies syncope, Denies irregular heart rhythm and Denies dyspnea Resp Denies chest congestion, Denies cough, Denies hemoptysis, Denies dyspnea and Denies wheezing GI Denies abdominal pain, Denies melena, Denies hematochezia, Denies coffee ground emesis, Denies dysphagia, Denies diarrhea, Denies nausea and Denies vomiting Denies urinary frequency, Denies dysuria, Denies urinary hesitancy and Denies urinary urgency Musc Denies arthralgias, Denies limited range of motion, Denies muscle cramps and Denies muscle weakness Skin/Breast Denies rash and Denies skin ulcer Neuro Denies Abnormal speech present, Denies confusion, Denies vertigo, Denies dizziness, Denies syncope, Denies headache(s), Denies memory loss and Denies seizure-like activity Psych Denies anxiety, Denies confusion, Denies depression, Denies memory loss, Denies panic attacks and Denies paranoia Endo Denies excessive sweating, Denies fatigue, Denies flushing, Denies polydipsia and Denies polyuria Aller/Immun Denies wheezing Physical exam (Primary Care) Vital Signs: Last Vital Signs Pulse 82 05/21/24 11:34 BP 120/74 05/21/24 11:34 Pulse Ox 99 05/21/24 11:34 Oxygen Delivery Method Room Air 05/21/24 11:34 BMI result Body Mass Index 27.1 Tobacco/Smoking Status: Tobacco use Status Tobacco use date assessed 05/21/24 05/21/24 11:41 Patient Tobacco Use Status Never used Tobacco 05/21/24 11:48 e-Cigarette/Vaping Use Never Used 05/21/24 11:48 PHQ-9: PHQ-9 Score PHQ-9: Total score 14 05/21/24 11:46 Depression Screening Interpretation: Positive Depression Screening Follow-up: Existing condition and In treatment Thrive Assessment: Date of Thrive Assessment Date Thrive assessed 05/21/24 05/21/24 11:41 Currently or been in a relationship where the following occur: I choose not to answer Const General: cooperative, comfortable, no acute distress, alert and awake; No confusion Orientation/consciousness: oriented to person, oriented to place, patient oriented x3 and No confusion HENMT Head: Yes normocephalic Ears: external ears normal and TM's normal bilaterally Face and sinus: No sinus tenderness Mouth: Normal oral and palatal mucosa present and tongue normal Teeth and gingiva: dentition normal and gingiva normal Throat: Yes posterior oropharynx normal, Yes tonsils normal and Yes uvula midline Eyes Conjunctivae: conjunctivae normal Sclerae: sclerae normal Pupils: Equal, round and reactive pupils present EOM: EOMs intact bilaterally Direct Ophthalmoscopy: No no photophobia Neck Neck: Yes no lymphadenopathy, No tender and Yes no JVD Thyroid: Thyroid normal Carotids: no bruits Chest Chest palpation & inspection: no tenderness Resp Effort & Inspection: normal respiratory effort, no audible wheezes, not labored and no stridor Auscultation: no crackles, no rales, no rhonchi and no wheezes Cardio Jugular venous distension: no JVD Rate: regular rate, not bradycardic and not tachycardic Rhythm: regular rhythm Bruits: no carotid bruits Peripheral pulses: Peripheral pulses 2+ throughout GI Inspection: Yes normal to inspection, No abdominal wall ecchymosis and No visible herniation Palpation (GI): Soft to palpation, nontender, no guarding, not rigid and No hepatosplenomegaly present Auscultation: normoactive bowel sounds General: Yes no CVA tenderness Back/Spine/Pelvis Back: no CVA tenderness and No back tenderness Cervical Spine: cervical ROM normal Thoracic/Lumbar Spine: thoracic and lumbar spine normal to inspection, straight leg raise negative bilaterally, No thoraco-lumbar ROM limited and No lumbar spinal tenderness Skin Lesions: no lesions Rashes: no rashes Wounds: no wounds Neuro General: oriented to person, oriented to place, patient oriented x3, CN's II-XI intact bilaterally and No confusion Cranial nerves: Yes Equal, round and reactive pupils present and Yes Normal accommodation reflex present Cognition (Neuro): normal cognition Speech: No Abnormal speech present Gait exam (Neuro): Normal gait present Motor exam (neuro): 5/5 motor strength present throughout Extrem Right upper extremity: full ROM; no cyanosis Left upper extremity: full ROM; no cyanosis Right lower extremity: no edema Left lower extremity: no edema Psych Appearance: grossly normal Mental Status: mental status grossly normal Affect: normal affect Attitude: cooperative Thought process: Normal thought process present Coding Level of Care Code Est Pt Prev Care 18-39y(82641) Diagnoses Annual physical exam Z00.00 Right foot pain M79.671 MDD (major depressive disorder), recurrent episode, moderate F33.1 Attention deficit hyperactivity disorder (ADHD), unspecified ADHD type F90.9 Attention deficit-hyperactivity disorder type: unspecified Bipolar affective disorder, currently depressed, moderate F31.32 Active/Remission status: currently active Current bipolar episode type: depressed Current episode severity: moderate Hypothyroidism, unspecified type E03.9 Hypothyroidism type: unspecified Additional Codes MALCOM-7 Assessment Billing - MALCOM-7 Assessment Tool: MALCOM-7 Assessment 50987 ([id number]) PHQ-9 - 62590 - PHQ-9 Billing: Yes ([id number]) Assessment & Plan Assessment & Plan (1) Annual physical exam: Code(s): Z00.00 - Encounter for general adult medical examination without abnormal findings Category: Medical Plan: As per HPI (2) Right foot pain: Code(s): M79.671 - Pain in right foot Category: Medical Plan: As per HPI patient has been experiencing intermittent right foot pain. She is willing to get x-ray to evaluate her midfoot. Otherwise we discussed possibly seeing limousine rental clerk for foot/shoe insurance. (3) MDD (major depressive disorder), recurrent episode, moderate: Code(s): F33.1 - Major depressive disorder, recurrent, moderate Category: Medical Plan: Patient's PHQ-9 score positive for depression which has been existing condition for her. She does speak with a mental health therapist who manages her mental health medications. She does report an issue going on at her current job though has been resolving . (4) ADHD: Code(s): F90.9 - Attention-deficit hyperactivity disorder, unspecified type Category: Medical Qualifiers: Attention deficit-hyperactivity disorder type: unspecified Qualified Code(s): F90.9 - Attention-deficit hyperactivity disorder, unspecified type Plan: Patient continues to be managed by her psychiatrist with stimulant medication for ADHD. (5) Bipolar disorder: Code(s): F31.9 - Bipolar disorder, unspecified Category: Medical Qualifiers: Active/Remission status: currently active Current bipolar episode type: depressed Current episode severity: moderate Qualified Code(s): F31.32 - Bipolar disorder, current episode depressed, moderate Plan: Patient continues on mood stabilization with lamotrigine. (6) Hypothyroid: Code(s): E03.9 - Hypothyroidism, unspecified Category: Medical Qualifiers: Hypothyroidism type: unspecified Qualified Code(s): E03.9 - Hypothyroidism, unspecified Plan: Patient's most recent TSH stable. She continues on levothyroxine 88 mcg daily. Will continue to follow TSH to assure. Orders: Orders XR foot RT 2V Today M79.671 - Pain in right foot Complete Blood Count no Diff Today J45.40 - Moderate persistent asthma, uncomplicated Comprehensive [place]. Panel Fast Today Z13.1 - Encounter for screening for diabetes mellitus TSH reflex Free T4 Today E03.9 - Hypothyroidism, unspecified Referrals Podiatry Referral M79.671 - Pain in right foot Medications: Refilled albuterol sulfate 90 mcg/actuation 2 puffs PO BID PRN 8.5 grams 5RF shortness of breath or wheezing 30 days J45.40 - Moderate persistent asthma, uncomplicated fluticasone propion-salmeterol 100-50 mcg/dose (Advair Diskus) 1 inh inhalation BID 60 ea 4RF 30 days J45.40 - Moderate persistent asthma, uncomplicated
--- OUTSIDE RECORDS SUMMARY | 2024-05-21 13:38 | XMS_ITS | Continuity of Care Document ---
Author Organization [facility] [address] [place] [address] Phone [phone] Social History Type Date Description Comments Sex Unknown Medical Devices Description No Information Available Encounters Description No Information Available Assessments Description No Information Available Plan of Treatment No Information Available Functional Status Description No Information Available Mental Status Description No Information Available Referrals Description No Information Available
--- OUTSIDE RECORDS SUMMARY | 2024-05-21 13:38 | XMS_ITS | Encounter Summary ---
Author Organization [facility] Address [address] [place] [id number] Phone Care Team Providers Care Tester [employer] Name Role Phone Jessica Sánchez NP Primary Care Provider Crispin car Encounter Details Date Type Department Care Team (Late st Contact Info) Description 10/21/2016 Conversion Encounter [facility] - [address] [id number] Social History Tobacco Use Types Packs/Day Years Used Date Smoking Tobacco: Never Assessed Comments Unknown Sex and Gender Information Value Date Recorded Sex Assigned at Not on file Legal Sex Female 4:24 PM EDT Gender Identity Not on file Sexual Orientation Not on file documented as of this encounter Plan of Treatment Not on file documented as of this encounter Visit Diagnoses Not on filedocumented in this encounter Care Teams Tester [employer] Bo[employer] Relationship Specialty Start Date End Date Jessica Sánchez NP PCP - General 10/15/16 09/26/22 documented as of this encounter
--- OUTSIDE RECORDS SUMMARY | 2024-05-21 13:38 | XMS_ITS | Clinical Summary ---
Author Organization [facility] Address [address] [place] [phone] Phone Care Team Providers Care Child Care Name Role Phone Unavailable Primary Care Provider Unavailabl e Immunizations Immunization Administration Dates Next Due DTP 05/04/1997, 7,09/03/1996,11/04,10/13/1988 HPV, Quadrivalent 06/13/2007 Hep B, ped/adol 07/06/1999,12/19/1998,11/04/1998 Hib (HbOC) 02/03/1998 IPV 05/04/1997, 7,09/03/1996,11/04,10/13/1988 MMR 11/04/1998,02/03/1998 Meningococcal Conj (Menactra) MCV4P 07/29/2004 Td (adult) (Tenivac), 5 Lf t etanus toxoid, PF, adsorbed 11/04/1998 Tdap 06/13/2007 Family History Relation Name Status Comments Brother 1 Alive Brother: Alive and well, Alive and well Brother 2 Alive Brother: Alive and well, Alive and well Mother Alive Mother: Alive a nd well Social History Tobacco Use Types Packs/Day Years Used Date Smoking Tobacco: Never Assessed Comments Unknown Sex and Gender Information Value Date Recorded Sex Assigned at Not on file Legal Sex Female 4:24 PM EDT Gender Identity Not on file Sexual Orientation Not on file Plan of Treatment Health Maintenance Due Date Last Done Comments Varicella Vaccines (1 of 2 - 13+ 2-dose series) 1999 HPV Vaccines (2 - 3-dose series) 07/11/2007 06/13/2007 DTaP,Tdap,and Td Vaccines (8 - Td or Tdap) 06/12/2017 06/13/2007, 11/04/1998, 05/04/1997, Additional history exists Influenza Vaccines (#1) 2023 COVID-19 Vaccine (2023- season) 2023 IPV Vaccines Completed 05/04/1997, 01/07, 09/03/1996, Additional history exists HIB Vaccines Aged Out 02/03/1998 No longer eligi ble based on patient's age to complete this topic MMR Vaccines Completed 11/04/1998, 02/03/1998 Hepatitis B Vaccines Completed 07/06/1999, 12/19/1998, 11/04/1998 Meningococcal Vaccine Completed 07/29/2004 Hepatitis A Vaccines Aged Out No long er eligible based on patient's age to complete this topic Men B Vaccine Aged Out No longer elig ible based on patient's age to complete this topic Pneumococcal Vaccine Aged Out No long er eligible based on patient's age to complete this topic
== END 2024-05-21 12:24 | disposition home or self-care (01) ==
LOC: HO.HMCH 11:27
PROVIDERS: PCP Physician Assistant; Visit Provider Physician Assistant
DX: Z00.00 Encounter for general adult medical examination without abnormal findings (principal); F31.32 Bipolar disorder, current episode depressed, moderate; M79.671 Pain in right foot; F90.9 Attention-deficit hyperactivity disorder, unspecified type; E03.9 Hypothyroidism, unspecified

== ENCOUNTER → 2024-05-21 11:26 | Outpatient (BNVA) | payer BC, SELFPAY | PROVIDERS: PCP Physician Assistant; Visit Provider Physician Assistant | DX: Z00.00 Encounter for general adult medical examination without abnormal findings (principal); M79.671 Pain in right foot; F90.9 Attention-deficit hyperactivity disorder, unspecified type; F31.32 Bipolar disorder, current episode depressed, moderate; E03.9 Hypothyroidism, unspecified; Z79.899 Other long term (current) drug therapy | CPT/HCPCS: 96127 ==

== ENCOUNTER 2025-02-08 13:04 | Outpatient (REF) | payer BC, SELFPAY ==
[2025-02-08 18:53] LABS: Resp Syncy Virus RNA Qual PCR NEGATIVE (Negative); SARS COV2 PCR INHOUSE NEGATIVE (Negative)
== END 2025-02-08 13:05 | disposition home or self-care (01) ==
LOC: HO.LNP 13:04
PROVIDERS: PCP Physician Assistant; Visit Provider Physician Assistant Medical
DX: R09.81 Nasal congestion (principal); J34.89 Other specified disorders of nose and nasal sinuses; R53.83 Other fatigue; R53.81 Other malaise; R63.0 Anorexia; R09.3 Abnormal sputum; M79.10 Myalgia, unspecified site; R51.9 Headache, unspecified; R05.9 Cough, unspecified; R50.9 Fever, unspecified
CPT/HCPCS: 87637

== ENCOUNTER 2025-02-08 13:04 | Outpatient (AMB) | payer BC, SELFPAY ==
[2025-02-08 13:22] VITALS: BP 122/60; PULSE 82; TEMP 36.9; O2SAT 99; BMI 27.4
--- NOTE | 2025-02-08 13:22 | AM.OFFWIN_ITS ---
Intake Vital Signs 02/08/25 13:22 Height 5 ft 6 in Weight 170 lb BMI 27.4 BP 122/60 Blood Pressure Location Lt brachial Position Sitting Pulse 82 Pulse Source Pulse Oximeter Temp 98.5 F Temp Source Oral Pulse Oximetry (%) 99 Oxygen Delivery Method Room Air Intake Visit Reasons: EP Red rashes, cold symptoms, skin irritation Intake Note: Patient presents c/o red patches on skin that felt coarse & were itchy & burned, sinus/chest congestion, headaches, body aches x1 week but was the worst 2 days ago. Patient Tobacco Use Status: Never used Tobacco Allergies No Known Allergies Allergy (Verified 02/08/25 13:27) HPI HPI Comments History of Present Illness Details This is a 39-year-old female who presented to the walk-in clinic complaining of viral URI symptoms x 2 days. Patient reports acute onset myalgias, chest and nasal congestion, rhinorrhea, headaches, productive cough with yellow sputum, subjective fevers, fatigue/malaise and loss of appetite. She states that she also developed scattered erythematous rashes, which were burning, painful, and dry although these have resolved. Patient states her symptoms have been progressively getting better but then she developed some nausea, vomiting, and diarrhea this morning. She states she had a few episodes of vomiting / diarrhea although she has not had any GI upset since this morning. She denies any known sick contacts. She denies any chest pain or shortness of breath. FORMERLY [facility], [facility] Surgical History History of wisdom tooth extraction Family History Mother Depressed Bipolar 1 disorder Anxiety ADHD Mental health disorder Father No problems noted. Other Substance use disorder Social History (Updated 05/21/24 @ 11:48 by Geovany Bains PA-C) Housing: Apartment Alcohol intake: current Alcohol intake frequency: a few times a month Alcohol type: beer Patient Tobacco Use Status: Never used Tobacco e-Cigarette/Vaping Use: Never Used Second Hand Smoke Exposure: No Substance Use Type: Marijuana service: No Current occupational status: employed Current occupation: [employer] Cognitive needs: No Hearing needs: No Vision needs: No Review of Systems Const All systems reviewed & are unremarkable except as noted in HPI and below Reports no additional complaints Eyes Reports no additional complaints ENT Reports no additional complaints Card Reports no additional complaints Resp Reports no additional complaints GI Reports no additional complaints Reports no additional complaints Musc Reports no additional complaints Skin/Breast Reports system reviewed and no additional complaints, except as documented Neuro Reports no additional complaints Psych Reports no additional complaints Endo Reports no additional complaints Torsten/Lymph Reports no additional complaints Aller/Immun Reports no additional complaints Physical Exam Exam Exam: Vital signs reviewed. Constitutional: Non-toxic appearing. No acute distress. Well-developed and well-nourished. HEENT: Normocephalic and atraumatic. PERRL/EOMI. Tympanic membranes without erythema, edema, or bulging bilaterally. External auditory canals without erythema or edema bilaterally. Moist mucous membranes. No pharyngeal erythema or exudates. Skin: Warm and dry. No rashes or lesions noted. Neck: Full and painless range of motion. No cervical lymphadenopathy. Cardio: Regular rate and rhythm. No murmurs, gallops, or rubs. No lower extremity edema. No JVD. Pulmonary: No respiratory distress. No accessory muscle usage. Clear to auscultation bilaterally without wheezing, crackles, or rhonchi. Gastrointestinal: Soft, non-tender, and non-distended in all 4 quadrants. Normoactive bowel sounds in all 4 quadrants. Genitourinary: No CVA tenderness. Musculoskeletal: Normal range of motion in joints throughout the body. No deformity or other signs of injury. Neuro: Alert and oriented x4. Cranial nerves 2-12 grossly intact. No focal deficits appreciated. Psych: Normal mood and affect. Vital Signs: Last Vital Signs Temp 98.5 F 02/08/25 13:22 Pulse 82 02/08/25 13:22 BP 122/60 02/08/25 13:22 Pulse Ox 99 02/08/25 13:22 Oxygen Delivery Method Room Air 02/08/25 13:22 BMI result Body Mass Index 27.4 Assessment & Plan Assessment & Plan (1) Acute upper respiratory infection, unspecified: Code(s): J06.9 - Acute upper respiratory infection, unspecified Plan 39-year-old female who presented to the walk-in clinic complaining of viral URI symptoms x 2 days. Her physical exam is benign and her vital signs are stable. History and physical most consistent with acute viral upper respiratory tract infection. I recommended symptomatic management including rest, increased fluids, advil/tylenol for pain/fever as long as patient has no medical contraindications, humidification at nighttime, normal saline or fluticasone nasal spray, and over the counter throat lozenges/decongestants. Patient advised to follow up here or go to the emergency room for worsening/persistent symptoms. Patient verbalized understanding and is agreeable with the plan. Orders: Orders SARS-CoV2/FLU/RSV Today J06.9 - Acute upper respiratory infection, unspecified Coding Level of Care Code Est Pt Level 3 (19197) Diagnoses Acute upper respiratory infection, unspecified J06.9
--- OUTSIDE RECORDS SUMMARY | 2025-02-08 17:00 | XMS_ITS | Encounter Summary ---
Author Organization [facility] Address [address] [place] [phone] Phone Care Team Providers Care Cognos Bi Developer Name Role Phone Jessica Sánchez NP Primary Care Provider Crispin car Encounter Details Date Type Department Care Team (Late st Contact Info) Description 10/21/2016 Conversion Encounter [facility] - [address] [id number] Social History Tobacco Use Types Packs/Day Years [...] on filedocumented in this encounter Care Teams Cognos Bi Developer Relationship Specialty Start Date End Date Jessica Sánchez NP PCP - General 10/15/16 09/26/22 documented as of this encounter
--- OUTSIDE RECORDS SUMMARY | 2025-02-08 17:00 | XMS_ITS | Continuity of Care Document ---
Author Organization [facility] Address [address] [place] [address] Phone [phone] Social History Type Date Description Comments Sex Female Sex Unknown Medical Devices Description No Information Available Encounters Description No Information Available Assessments Description No Information Available Plan of Treatment No Information Available Functional Status Description No Information Available Mental Status Description No Information Available Referrals Description No Information Available
--- OUTSIDE RECORDS SUMMARY | 2025-02-08 17:00 | XMS_ITS | Clinical Summary ---
Author Organization [facility] Address [address] [place] [phone] Phone Care Team Providers Care Refrigeration Lead Name Role Phone Unavailable Primary Care Provider [...] 05/04/1997, Additional history exists Influenza Vaccines (#1) 2024 COVID-19 Vaccine ( season) 2024 IPV Vaccines Completed 05/04/1997, 01/07, 09/03/1996, Additional [...]
--- OUTSIDE RECORDS SUMMARY | 2025-02-08 17:00 | XMS_ITS | Clinical Summary ---
Author Organization [facility] Address [address] [place] [phone] Phone Care Team Providers Care Cork Floor Installer Name Role Phone Pcp, Unknown Primary Care Provider Unavailabl e Allergies No known active allergies Medications lamoTRIgine 50 mg(14)-100mg (14)-200 mg (7) TERD Take 300 mg by mouth. 09/30/2022 Active gabapentin (NEURONTIN) 300 MG capsule Take 300 mg by mouth nightly at bedtime. 07/13/2023 Active dextroamphetami ne-amphetamine (ADDERALL XR) 20 MG 24 hr capsule Take 20 mg by mouth every morning. 07/29/2023 Active buPROPion (WELLBUTRIN) 75 MG immediate release tablet Take 1 tablet by mouth every morning. 07/21/2023 Active levothyroxine (SYNTHROID, LEVOTHROID) 88 MCG tablet Take 1 tablet by mouth every morning. 08/16/2023 Active Active Problems No known active problems Social History Tobacco Use Types Packs/Day Years Used Date Smoking Tobacco: Never Assessed Education Answer Date Recorded Are you interested in more education? Not on eloise e 09/02/2023 Are you concerned about learning? Not on file 09/02/2023 No 09/02/2023 No 09/02/2023 Digital Access Answer Date Recorded No 09/02/2023 No 09/02/2023 Reliable internet access at home? Not on file 09/02/2023 Device with a working camera? Not on file Intimate Partner Violence Answer Date R ecorded Are you denied basic needs s uch as food, clothing, or medical care? No 12/17/2023 In the past 12 months have y ou been in a relationship with a person who hurts, threatens, or tries to control you? No 12/17/2023 Are you denied basic needs s uch as food, clothing, or medical care? No 12/17/2023 In the past 12 months have y ou been in a relationship with a person who hurts, threatens, or tries to control you? No 12/17/2023 Comments Unknown Sex and Gender Information Value Date Recorded Sex Assigned at Female 12/17/2023 11:40 AM EDT Legal Sex Female 8:48 AM EDT Gender Identity Female 12/17/2023 11:40 AM EDT Sexual Orientation Not on file Last Filed Vital Signs Vital Sign Reading Time Taken Comments Blood Pressure 136/85 12/17/2023 12:13 PM EDT Pulse 78 12/17/2023 12:13 PM EDT Temperature 36.6 C (97.9 F) 12/17/2023 12:13 PM EDT Respiratory Rate 20 12/17/2023 12:13 PM EDT Oxygen Saturation 100% 12/17/2023 12:13 PM EDT Inhaled Oxygen Concentration - - Weight 76.7 kg (169 lb) 12/17/2023 11:39 AM EDT Height 167.6 cm (5' 6 ) 12/17/2023 11:39 AM EDT Body Mass Index 27.28 12/17/2023 11:39 AM EDT Plan of Treatment Health Maintenance Due Date Last Done Comments TSH LEVEL 1986 DEPRESSION SCREENING 1998 SMOKING Hx and SMOKELESS TOBACCO SCREENING 1999 HEPATITIS C SCREENING 2004 HIV ONE-TIME SCREENING (18-6 5 YEARS) 2004 PAP SMEAR 2007 SCREENING FOR DIABETES 2021 INFLUENZA VACCINE (#1) 2024 COVID-19 VACCINE (2024-2 6 season) 2024 03/11/2021, 07/22/2020, 07/01/2020 Adult Td,Tdap Booster 05/12/2031 05/11/2021 , 06/13/2007 PNEUMOCOCCAL VACCINES (0-49 years) Aged Out 05/13/2022 No longer eligible b ased on patient's age to complete this topic HEPATITIS A VACCINES Aged Out No long er eligible based on patient's age to complete this topic HIB VACCINES Aged Out No longer eligi ble based on patient's age to complete this topic MENINGOCOCCAL VACCINES (ACWY) Aged Out No longer eligible based on patient's age to complete this topic MENINGOCOCCAL VACCINES (B) Aged Out N o longer eligible based on patient's age to complete this topic Medical Devices Not on file Insurance [address] [place] [id number] [facility] QUALITY LIMITED [facility] HMO [address] [place] [id number] [facility] HMO [address] [place] [id number] [facility]ALITY [facility] [place]ATT [facility] ADITIG[place]ORIA KILLIAN [facility] [address] [place] [id number] [facility] [address] [place] [id number] [facility] [address] [place] [id number] [facility]AL[facility] [address] [address] [place] [address] [facility] QUALITY [employer] [facility] HMO [address] [facility] Care Teams Cork Floor Installer Relationship Specialty Start Date End Date Pcp, Unknown PCP - General 12/17/23 Additional Source Comments The information contained in this document represents components of the legal health record. It is not the complete legal health record.[facility]
== END 2025-02-08 14:03 | disposition home or self-care (01) ==
PROVIDERS: PCP Physician Assistant; Visit Provider Physician Assistant Medical
DX: J06.9 Acute upper respiratory infection, unspecified (principal)